=== PATIENT | female | born 2005 | race African-American/Black ===

== ENCOUNTER 2025-02-01 19:47 | Observation (INO) | payer OTHER, SELFPAY ==
--- OUTSIDE RECORDS SUMMARY | 2025-02-01 19:27 | XMS_ITS | CONTINUITY OF CARE DOCUMENT ---
Author Name alfredo fuentes Address Unknown Organization [facility] Address [address] [address] [address] [facility] [address] [place] [address] Phone [phone] Care Team Providers Care E Commerce Web Developer Name Role Phone Alek Rodriguez MD Unavailable Alek Rodriguez MD Unavailable [phone] INS[employer]ANCE PROVID[employer] Payer name Policy type / Coverage type [place] red green party ID [id number]
--- OUTSIDE RECORDS SUMMARY | 2025-02-01 20:06 | XMS_ITS | Encounter Summary ---
Author Organization [facility] Healthcare Address [address] [place] [address] Care Team Providers Care Provider Contracting Consultant Name Role Phone Lulu Heck MD Primary Care Provider [phone] Encounter Details Date Type Department Care Team ([facility] Contact Info) Description 01/01/2025 Results Follow-Up [facility] Obstetrical Gynecology [address] [id number] Hope Hernandez MD [address] [id number] Social History Tobacco Use Types Packs/Day Years Used Date Smoking Tobacco: Never PHQ-2 Answer Date Recorded PHQ-2 Total Score (If total score is 3 or more points, staff should administer the PHQ-9) 0 09/02/2024 Estimated Date of Delivery Comme nts Yes 06/02/2025 Based on last me nstrual period of 08/26/2024 Sex and Gender Information Value Date Recorded Sex Assigned at Not on file Legal Sex Female 3:50 PM [employer] Gender Identity Not on file Sexual Orientation Not on file documented as of this encounter Miscellaneous Notes * Telephone Encounter - Kenia Cruz MD - 02/01/2025 12:53 PM CDT What I see if BV, yeast and evidence of exposure to herpes (HSV) I do not see anything about HIV She needs fluconazole, flagyl * Telephone Encounter - Tito Richard MA - 02/01/2025 12:49 PM CDT Called patient for clarification 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 Has not had an outbreak before. Went over precautions as well as starting medications at 35 just as a precaution. All questions havebeen answered * Telephone Encounter - Tito Richard MA - 02/01/2025 12:09 PM CDT Called to get clarification patient stated the nurse told her she was positive for both BV and HIV.Patient is going to the clinic to get a copy of her results * Telephone Encounter - Tito Richard MA - 02/01/2025 11:29 AM CDT Patient states when her and her partner had intercourse the week of the . Patient states her partner stated his penis was hurting. 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 She is concerned that it could shyanne false positive and she would like to be retested before starting medication. Please advise documented in this encounter Plan of Treatment Not on file documented as of this encounter Visit Diagnoses Not on filedocumented in this encounter Care Teams Provider Contracting Consultant Relationship Specialty Start Date End Date Lulu Heck MD [address] [address] PCP - General Internal Medicine 09/02/24 documented as of this encounter
--- OUTSIDE RECORDS SUMMARY | 2025-02-01 20:06 | XMS_ITS | Clinical Summary ---
Author Organization [facility] [address] [place] [address] Address [address] [place] [address] Care Team Providers Care Assistant Terminal Manager Name Role Phone Lulu Heck MD Primary Care Provider [phone] Allergies No known active allergies Medications budesonide-for moteroL (SYMBICORT) 80-4.5 mcg/actuation inhaler Inhale 2 puffs 2 (two) times a day Rinse mouth with water after use. Do not swallow. 1 each 5 09/02/20 24 Active vit 04-sxiy-vyzir- dha 27mg iron- 800 mcg-250 mg capsule Take 1 tablet by mouth daily 90 capsule 3 11/20/19 25 Active albuterol HFA (PROVENTIL HFA,VENTOLIN HFA,PROAIR HFA) 90 mcg/actuation inhaler INHALE 2 PUFFS BY MOUTH EVERY 8 HOURS NEEDED FOR WHEEZING 6.7 each 3 01/19/20 25 Active albuterol HFA (PROVENTIL HFA,VENTOLIN HFA,PROAIR HFA) 90 mcg/actuation inhaler Inhale 2 puffs every 8 (eight) hours as needed for wheezing 1 each 3 09/02/20 24 025 Discontinued azithromycin (ZITHROMAX) 500 mg tablet TAKE 2 TABLETS BY MOUTH FOR 1 DOSE 11/25/19 25 025 Discontinued(Th erapy completed) M-Catalino Plus 27 mg iron- 1 mg tablet Take 1 tablet by mouth daily 11/23/19 025 Discontinued(Th erapy completed) Active Problems Problem Noted Date Diagnosed Date Chlamydia infection 11/25/2024 GBS bacteriuria 11/25/2024 Encounter for supervision of normal , a ntepartum 11/20/2024 Mild intermittent asthma without complication Assessment & Plan (09/02/2024 11:22 AM COASTAL AND ESTUARY SPECIALIST): Patient with history of asthma since childhood. She takes albuterol inhaler as needed. She went to the ER recently for exacerbation and she was treated with steroids. Patient said that she uses albuterol inhaler on a daily basis. Patient usually does not have frequent issues with asthma. Spirometry today showed FEV1/FVC at 74%. We will start her on Symbicort 80 mcg 2 puffs b.i.d. and advised to rinse the mouth after each use and instructions on how to use the inhaler was given. Patient to call us for persistent symptoms. Routine general medical exam ination at a health care facility 09/02/2024 Assessment & Plan (09/02/2024 11:21 AM COASTAL AND ESTUARY SPECIALIST): Patient uses seatbelt. Patient was encouraged to exercise on regular basis. Patient had flu vaccine. Patient was encouraged to quit smoking marijuana Estimated Date of Delivery Comme nts Yes 06/02/2025 Based on last me nstrual period of 08/26/2024 Encounters Date Type Department Care Team Description 01/18/2025 3:00 PM CDT Office Visit [facility] Obstetrical Gynecology [address] [place] [address] [address] [place] [phone] Kenia Cruz MD Excessive growth affecting management of in second trimester, single or unspecified fetus (Primary Dx); Swelling of lower extremity 01/18/2025 2:15 PM CDT Ancillary Procedure [facility] Obstetrical Gynecology [address] [place] [address] [address] [place] [phone] Encounter for follow-up ultrasound of anatomy 01/18/2025 Orders Only [facility] Obstetrical Gynecology [address] [place] [address] [address] [place] [phone] Will Grijalva MD Excessive growth affecting management of in third trimester, fetus 1 (Primary Dx) 01/18/2025 Orders Only [facility] Obstetrical Gynecology [address] [place] [phone] Will Grijalva MD 01/18/2025 Telephone [facility] Obstetrical Gynecology [address] [place] [phone] Will Grijalva MD 01/04/2025 Orders Only [facility] Obstetrical Gynecology [address] [place] [phone] Kenia Cruz MD Encounter for follow-up ultrasound of anatomy (Primary Dx) 01/01/2025 Results Follow-Up [facility] Obstetrical Gynecology [address] [place] [phone] Hope Hernandez MD 12/31/2024 4:11 PM CDT - 12/31/2024 11:59 PM CDT Hospital Encounter [facility] Lab [facility] [place] [address] Routine screening for STI (sexually transmitted infection) Discharge Disposition: Discharge to home or self care 12/31/2024 2:30 PM CDT Office Visit [facility] Obstetrical Gynecology [address] [place] [phone] Hope Hernandez MD Encounter for supervision of normal first in second trimester (Primary Dx); Routine screening for STI (sexually transmitted infection) 11/25/2024 Results Follow-Up [facility] Obstetrical Gynecology [address] [place] [phone] Vincent Rios MD 11/20/2024 12:20 PM COASTAL AND ESTUARY SPECIALIST - 11/20/2024 11:59 PM COASTAL AND ESTUARY SPECIALIST Hospital Encounter [facility] Office Building [address] [place] [phone] Encounter for supervision of normal in first trimester, unspecified Discharge Disposition: Discharge to home or self care 11/20/2024 11:30 AM COASTAL AND ESTUARY SPECIALIST Office Visit [facility] Obstetrical Gynecology [address] [place] [phone] Vincent Rios MD Encounter for supervision of normal in first trimester, unspecified (Primary Dx) 11/20/2024 10:15 AM COASTAL AND ESTUARY SPECIALIST Lab [facility] [address] [place] [phone] Encounter for supervision of normal in first trimester, unspecified 11/20/2024 9:30 AM COASTAL AND ESTUARY SPECIALIST Clinical Support [facility] Obstetrical Gynecology [address] [place] [phone] 11/20/2024 9:00 AM COASTAL AND ESTUARY SPECIALIST Clinical Support [facility] Obstetrical Gynecology [address] [place] [address] [phone] Establish gestational age, ultrasound (Primary Dx) from Last 3 Months Immunizations Immunization Administration Dates Next Due DTaP 06/02/2008, 5,2004,07/26,2004 HPV, Quadrivalent 11/11/2014,06/08/2014,05/27/20 13 Hep A, Ped Unspecified 06/12/2006 Hep A, Pediatric 07/04/2007 Hep B, Adolescent or Pediatric 4,2004,2004,02/16 HiB 07/03/2005, 4,2004,04/27 IPV 06/02/2008, 4,2004,04/27 Influenza, Quadrivalent, Spl it, Preservative Free, Intramuscular 08/25/2020,07/04/2017,07/31/2016,08/17,10/05/2014,07/27/2013 Influenza, Split 06/29/2009 Influenza, Trivalent, IM (MDV) 07/24/2011 Influenza, Trivalent, Preser vative Free, Intramuscular 07/09/2024 MMR 06/02/2008,03/19/2005 Meningococcal B, OMV (Bexsero) 05/24/2021,2019 Meningococcal MCV4P (Menactra) 08/25/2020,2014 Pneumococcal Conjugate 7-Valent 07/03/20 05,2004,2004,04/27 Tdap 04/12/2015 Varicella 06/02/2008,03/19/2005 Medical History Medical History Date Comments Asthma Family History Medical History Relation Name Comments Breast cancer Neg Hx Colon cancer Neg Hx Ovarian cancer Neg Hx Uterine cancer Neg Hx Social History Tobacco Use Types Packs/Day Years Used Date Smoking Tobacco: Never Tobacco Cessation:Counseling Given: Not Answered PHQ-2 Answer Date Recorded PHQ-2 Total Score (If total score is 3 or more points, staff should administer the PHQ-9) 0 09/02/2024 Estimated Date of Delivery Comme nts Yes 06/02/2025 Based on last me nstrual period of 08/26/2024 Sex and Gender Information Value Date Recorded Sex Assigned at Not on file Legal Sex Female 3:50 PM COASTAL AND ESTUARY SPECIALIST Gender Identity Not on file Sexual Orientation Not on file Obstetrics History Para Term AB IAB SAB Ectopic Multiple Livin g Live Births 1 Date Outcome GA Total Labor Labor/2nd/3rd Weight Sex Type Anes PTL Karena A1 A5 Name Clin Current Summary Episode Dates Number of Fetuses Estimated Date of Delivery 11/20/2024 - Present (02/01/2025) 1 06/02/2025 (set by Patricia Pena RN on 11/20/2024 based on Last Menstrual Period on 08/26/2024) Dating Summary Based On BRANDI GA Diff Last Menstrual Period on 08/26/2024 06/02/2025 Working Ultrasound on 11/20/2024 05/27/2025 +6d GA:13w1d Overview and Plan :Castañeda Support person:Madalyn Bailey Delivery Plans Planned delivery method:Vaginal Planned delivery location:[facility] Overview Surveillance of EDC by LMP = 13 week US AB+/I/-/-, HIV and RPR NR Genetics: Anatomy: 20 weeks GCT: 26-28 weeks 3rd trim CBC/HIV/RPR Tdap: 27+ weeks GBS: URIA!! Social Barriers: none Mode of feeding: Method of contraception: Delivery Planning: TBD Asthma Chlamydia positive: treatment sent 11/25, will need KELLEY Vitals Pregravid Weight Height TWG (As of 02/01/2025) Pregrav id BMI 93.9 kg (207 lb) 180.3 cm (5' 10.98 ) 8.618 kg (19 lb) 28.88 Notes Progress Notes - Office Visi t - 01/18/2025 - GA:20w5d 01/18/2025 - 20wd - Matteo Cruz MD Return OB Visit 19 y.o. at 20w5d who presents for return OB visit. No VB or LOF Not yet feeling movement reliably Continues to have LE swelling, denies chest pain or pain in her legs Objective BP 124/80 Ht 180.3 cm (5' 10.98 ) Wt 226 lb (102.5 kg) LMP 08/26/2024 BMI 31.53 kg/m Body mass index is 31.53 kg/m . TW lb (8.618 kg) Assessment/Plan: - reviewed use of compression socks and limiting salt intake if possible - reviewed s/s of VTE, calves are within 1.5 cm of each other today - reviewed reassuring anatomy US, but LGA so will get growth US at 28 weeks Surveillance of EDC by LMP = 13 week US Labs: AB+/I/-/-, HIV and RPR NR Genetics: counseled and declines Anatomy: Complete, LGA (93%), normal cervical length Placenta: anterior GCT: 26-28 weeks 3rd trim CBC/HIV/RPR Tdap: 27+ weeks GBS: uria, PCN in labor, NKDA. Social Barriers: none Mode of feeding: Method of contraception: mirena IUD Delivery Planning: TBD MP Asthma - PRN Albuterol and symbicort BID, advised to call if any worsening Chlamydia (11/20), KELLEY negative LGA: recommend Heidi at 28 weeks LE swelling: symmetric and otherwise asymptomatic, reviewed supportive care Kenia Cruz MD Progress Notes - Orders Only - 01/04/2025 - GA:18w5d 01/04/2025 - 18wd - Silvia Liu MA Us placed Progress Notes - Office Visi t - 12/31/2024 - GA:18w1d 12/31/2024 - 18w - Hope Hernandez MD Return OB Visit 19 y.o. at 18w1d who presents for return OB visit. Patient overall doing well. She does report LE swelling after being at work all day. [place] Completed treatment for chlamydia. Objective BP 108/60 Ht 180.3 cm (5' 11 ) Wt 223 lb (101.2 kg) LMP 08/26/2024 BMI 31.10 kg/m Body mass index is 31.1 kg/m . TW lb (7.258 kg) +155 +1 LE edema Assessment/Plan: Discussed compression stockings for LE edema and putting feet up at night as much as possible. Anatomy scan next visit. Surveillance of EDC by LMP = 13 week US Labs: AB+/I/-/-, HIV and RPR NR Genetics: counseled - undecided Anatomy: 20 weeks GCT: 26-28 weeks 3rd trim CBC/HIV/RPR Tdap: 27+ weeks GBS: uria, PCN in labor, NKDA. Social Barriers: none Mode of feeding: Method of contraception: Delivery Planning: TBD Asthma - on albuterol -PRN and symbicort BID, advised to call if any worsening Chlamydia (11/20), KELLEY performed today (12/31) Hope Hernandez MD Progress Notes - Clinical Sanchez pport - 11/20/2024 - GA:12w2d 11/20/2024 - 12w2d - Patricia Miner RN Patient is doing well today. Pt would like to discuss asthma. Dating US completed here in office. BRANDI reviewed with the pt. PNL ordered today. NIPT discussed with the pt. She will let us know if she wants to complete the testing. STI urine to be collected today. Tdap and flu shot recommendations reviewed with the pt. Asthma, pt has 2 inhalers that she uses. She does not follow with pulmonology. OB call schedule reviewed with the pt. NOB packet reviewed with the pt and her questions were answered. TAL AND ESTUARY SPECIALIST Progress Notes - Office Visi t - 11/20/2024 - GA:12w2d 11/20/2024 - 12w2d - Vincent Rios MD New OB Visit CC: Chief Complaint Patient presents with Initial Visit HPI: Dominga Lantigua is a 19 y.o. female at 12w2d here for new OB visit. Patient reports vasquez cute concerns Denies vb, lof, ctxs Denies MONTEZ/altered vision/CP/SOB/abdominal pain/significant edema/LE discomfort. OB History 1 Para Term AB Living SAB IAB Ectopic Multiple Live Births Past Medical History: Diagnosis Date Asthma History reviewed. No pertinent surgical history. Family History Problem Relation Age of Onset Breast cancer Neg Hx Colon cancer Neg Hx Ovarian cancer Neg Hx Uterine cancer Neg Hx reports that she has never smoked. She does not have any smokeless tobacco history on file. No alcohol history on file. reports that she does not currently use drugs after having used the following drugs: Marijuana. No Known Allergies Medications: Current Outpatient Medications: albuterol HFA (PROVENTIL HFA,VENTOLIN HFA,PROAIR HFA) 90 mcg/actuation inhaler, Inhale 2 puffs every 8 (eight) hours as needed for wheezing, Disp: 1 each, Rfl: 3 budesonide-formoteroL (SYMBICORT) 80-4.5 mcg/actuation inhaler, Inhale 2 puffs 2 (two) times a day Rinse mouth with water after use. Do not swallow., Disp: 1 each, Rfl: 5 vit 94-qdow-pcmgx-dha 27mg iron- 800 mcg-250 mg capsule, Take by mouth, Disp: , Rfl: Immunization History Administered Date(s) Administered DTaP 2004, 2004, 2004, 07/03/2005, 06/02/2008 HPV, Quadrivalent 05/27/2013, 06/08/2014, 11/11/2014 Hep A, Ped Unspecified 06/12/2006 Hep A, Pediatric 07/04/2007 Hep B, Adolescent or Pediatric 2004, 2004, 2004, 2004 HiB 2004, 2004, 2004, 07/03/2005 IPV 2004, 2004, 2004, 06/02/2008 Influenza, Quadrivalent, Split, Preservative Free, Intramuscular 07/27/2013, 10/05/2014, 08/17/2015, 07/31/2016, 07/04/2017, 08/25/2020 Influenza, Split 06/29/2009 Influenza, Trivalent, IM (MDV) 07/24/2011 Influenza, Trivalent, Preservative Free, Intramuscular 07/09/2024 MMR 03/19/2005, 06/02/2008 Meningococcal B, OMV (Bexsero) 08/25/2020, 05/24/2021 Meningococcal MCV4P (Menactra) 04/12/2015, 08/25/2020 Pneumococcal Conjugate 7-Valent 2004, 2004, 2004, 07/03/2005 Tdap 04/12/2015 Varicella 03/19/2005, 06/02/2008 Review of Systems: 10 systems reviewed and negative, except for those mentioned in HPI. Physical Exam BP 116/78 Wt 207 lb (93.9 kg) LMP 08/26/2024 BMI 28.87 kg/m Body mass index is 28.87 kg/m . TW lb (0 kg) Heart Rate: +US General: over weight female, pleasant, in no acute distress HEENT: normocephalic, atraumatic, nose normal, conjunctivae normal Lungs: Normal effort, no respiratory distress Abdomen: soft, nontender, nondistended Skin: warm, well-perfused Neuro: No focal deficits Psych: alert; normal mood and affect ASSESSMENT / PLAN: Dominga Lantigua is a 19 y.o. female at 12w2d here for new OB visit. Diagnosis Plan 1. Encounter for supervision of normal in first trimester, unspecified CBC without differential Drugs of Abuse Screen, Urine with Reflex Confirmation Hemoglobin A1c Hemoglobin analysis by electrophoresis Hepatitis B Surface Antigen Blood Hepatitis C antibody Blood HIV 1/2 Antibody plus p24 Antigen Blood RPR Blood Rubella IgG antibody Blood Type and screen Urine culture Urine, clean voided N. gonorrhoeae/C. trachomatis Amplification Urine Trichomonas vaginalis PCR Urine Surveillance of EDC by LMP = 13 week US Labs: ordered Genetics: counseled - undecided Anatomy: 20 weeks GCT: 26-28 weeks 3rd trim CBC/HIV/RPR Tdap: 27+ weeks GBS: 36 weeks, or sooner if early delivery indicated Social Barriers: none Mode of feeding: Method of contraception: Delivery Planning: TBD Asthma - on albuterol -PRN and symbicort BID (has not started this - recommend pciking up IAN); advsied to call if any worsening Counseled to call or return for vaginal bleeding, regular contractions, leakage of fluid or decreased movement. Oriented to clinic and care. packet reviewed and all patient questions answered. Follow-up: 4wks LUCI Rios MD TAL AND ESTUARY SPECIALIST Last Filed Vital Signs Vital Sign Reading Time Taken Comments Blood Pressure 124/80 01/18/2025 3:08 PM CDT Pulse 60 09/02/2024 9:24 AM COASTAL AND ESTUARY SPECIALIST Temperature 37 C (98.6 F) 09/02/2024 9:24 AM COASTAL AND ESTUARY SPECIALIST Respiratory Rate 16 09/02/2024 9:24 AM COASTAL AND ESTUARY SPECIALIST Oxygen Saturation 98% 09/02/2024 9:24 AM COASTAL AND ESTUARY SPECIALIST Inhaled Oxygen Concentration - - Weight 102.5 kg (226 lb) 01/18/2025 3:08 PM CDT Height 180.3 cm (5' 10.98 ) 01/18/2025 3:08 PM C DT Body Mass Index 31.53 01/18/2025 3:08 PM CDT Plan of Treatment Health Maintenance Due Date Last Done Comments Pneumococcal vaccine <65 (1 of 1 - PPSV23) 02/16/2010 07/03/2005, 2004, 2004, Additional history exists DTaP/Tdap/Td Vaccine (7 - Td or Tdap) 04/12/2025 04/12/2015, 06/02/2008, 07/03/2005, Additional history exists Depression Screening 09/02/2025 09/02/2024 Regular Well Visit/Exam 18-64 09/02/2025 09/02/2024 Chlamydia and Gonorrhea (GC/ CT) Screening 12/31/2025 12/31/2024, 11/20/2024 Hepatitis B Screening Completed 2004 , 2004, 2004, Additional history exists Varicella Vaccines Completed 06/02/2008, 03/19/2005 HPV Vaccines Completed 11/11/2014, 11/2013, 05/27/2013 Meningococcal Vaccine Completed 08/25/2020, 015 Meningococcal B Vaccine Completed 05/24/2021, 08/25 Influenza Vaccine Completed 07/09/2024, , 07/04/2017, Additional history exists Hepatitis C Screening Completed 11/20/2024 Procedures Procedure Name Priority Date/Time Associated Diagnosis Comments US OB 14 WEEKS OR OVER W ENDOVAGINAL Schedule Routine, Read Routine (OP Routine) 01/18/2025 2:16 PM CDT Encounter for follow-up ultrasound of anatomy N. GONORRHOEAE/C. TRACHOMATIS AMPLIFICATION Routine 12/31/2024 3:06 PM CDT Routine screening for STI (sexually transmitted infection) DRUGS OF ABUSE SCREEN, URINE WITH REFLEX CONFIRMATION Routine 11/20/2024 10:28 AM COASTAL AND ESTUARY SPECIALIST Encounter for supervision of normal in first trimester, unspecified URINE CULTURE Routine 11/20/2024 10:28 AM COASTAL AND ESTUARY SPECIALIST Encounter for supervision of normal in first trimester, unspecified N. GONORRHOEAE/C. TRACHOMATIS AMPLIFICATION Routine 11/20/2024 10:28 AM COASTAL AND ESTUARY SPECIALIST Encounter for supervision of normal in first trimester, unspecified TRICHOMONAS VAGINALIS PCR Routine 11/20/2024 10:28 AM COASTAL AND ESTUARY SPECIALIST Encounter for supervision of normal in first trimester, unspecified ANTIBODY SCREEN Routine 11/20/2024 10:13 AM COASTAL AND ESTUARY SPECIALIST Encounter for supervision of normal in first trimester, unspecified ABO/RH Routine 11/20/2024 10:13 AM COASTAL AND ESTUARY SPECIALIST Encounter for supervision of normal in first trimester, unspecified CBC WITHOUT DIFFERENTIAL Routine 11/20/2024 10:13 AM COASTAL AND ESTUARY SPECIALIST Encounter for supervision of normal in first trimester, unspecified HEMOGLOBIN A1C Routine 11/20/2024 10:13 AM COASTAL AND ESTUARY SPECIALIST Encounter for supervision of normal in first trimester, unspecified HEMOGLOBIN ANALYSIS BY ELECTROPHORESIS Routine 11/20/2024 10:13 AM COASTAL AND ESTUARY SPECIALIST Encounter for supervision of normal in first trimester, unspecified TYPE AND SCREEN Routine 11/20/2024 10:13 AM COASTAL AND ESTUARY SPECIALIST Encounter for supervision of normal in first trimester, unspecified HEPATITIS B SURFACE ANTIGEN Routine 11/20/2024 10:13 AM COASTAL AND ESTUARY SPECIALIST Encounter for supervision of normal in first trimester, unspecified HEPATITIS C ANTIBODY Routine 11/20/2024 10:13 AM COASTAL AND ESTUARY SPECIALIST Encounter for supervision of normal in first trimester, unspecified HIV 1/2 ANTIBODY PLUS P24 ANTIGEN Routine 11/20/2024 10:13 AM COASTAL AND ESTUARY SPECIALIST Encounter for supervision of normal in first trimester, unspecified RPR Routine 11/20/2024 10:13 AM COASTAL AND ESTUARY SPECIALIST Encounter for supervision of normal in first trimester, unspecified RUBELLA IGG Routine 11/20/2024 10:13 AM COASTAL AND ESTUARY SPECIALIST Encounter for supervision of normal in first trimester, unspecified US OB UNDER 14 WEEKS Schedule Routine, Read Routine (OP Routine) 11/20/2024 9:26 AM COASTAL AND ESTUARY SPECIALIST Establish gestational age, ultrasound from Last 3 Months Results * US OB 14 Weeks Or Over W Endovaginal (01/18/2025 2:16 PM CDT) Fetus# Fetus1 VIEWPOINT Estimated Weight 454 g&grams VIEWPOINT Placenta Details anterior VIEWPOINT Presentation Vertex VIEWPOINT Anatomical Region Laterality Modality Abdomen N/A Ultrasound 01/18/2025 2:25 PM CDT Impressions 01/18/2025 3:20 PM CDT Single Live Fetus in Vertex presentation. Anatomic Survey Complete All anatomy normal within the limits of ultrasound. LGA growth pattern with EFW 454 g, 93% Fluid within normal limits with DVP of 4.7 cm Placenta anterior Normal Cervical Length 41.4 mm Narrative Procedure Note Kenia Cruz MD - 01/18/2025 IMPRESSION: Single Live Fetus in Vertex presentation. Anatomic Survey Complete All anatomy normal within the limits of ultrasound. LGA growth pattern with EFW 454 g, 93% Fluid within normal limits with DVP of 4.7 cm Placenta anterior Normal Cervical Length 41.4 mm us Kenia Cruz MD IMG OB US PROCEDURES Final Result * N. gonorrhoeae/C. trachomatis Amplification Vaginal (12/31/2024 3:06 PM CDT) C. trachomatis Not Detected [facility] Comment:Testing performed by : [facility], [address] [place] [place]., [address] N. gonorrhoeae Not Detected [facility] Comment: Interpretive Data This assay detects Chlamydia trachomatis and Neisseria gonorrhoeae by nucleic acid amplification testing (NAAT). This assay has been cleared by the [place] Food and Drug administration. The performance characteristics of this test have been verified by the [facility] Molecular Infectious Disease laboratory. The performance characteristics of this test have not been evaluated in individuals less than 14 years of age. Current Interpretive Data was last revised on 2023. Testing performed by: [facility], [address] [place]., [address] Vaginal (None) 12/31/2024 3: 06 PM CDT 12/31/2024 7:43 PM CDT Hope Hernandez MD LAB MICROBIOLOGY - GENERA L ORDERABLES Final Result Performing Organization Address [facility] Co de Phone Number [address] [address] [facility] * (ABNORMAL) N. gonorrhoeae/C. trachomatis Amplification Urine (11/20/2024 10:28 AM COASTAL AND ESTUARY SPECIALIST) C. trachomatis Detected(A) [facility] Comment:Testing performed by : [facility], [address] [place] [address]., [id number] N. gonorrhoeae Not Detected [facility] Comment: Interpretive Data This assay detects Chlamydia trachomatis and Neisseria gonorrhoeae by nucleic acid amplification testing (NAAT). This assay has been cleared by the [place] Food and Drug administration. The performance characteristics of this test have been verified by the [facility] Molecular Infectious Disease laboratory. The performance characteristics of this test have not been evaluated in individuals less than 14 years of age. Current Interpretive Data was last revised on 2023. Testing performed by: [facility], [address] [place] [address]., [id number] Urine (None) 11/20/2024 10:2 8 AM COASTAL AND ESTUARY SPECIALIST 11/21/2024 12:11 AM COASTAL AND ESTUARY SPECIALIST Vincent Rios MD LAB MICROBIOLOGY - GENER AL ORDERABLES Final Result Performing Organization Address [facility] Co de Phone Number [address] [address] [facility] * Drugs of Abuse Screen, Urine with Reflex Confirmation (11/20/2024 10:28 AM COASTAL AND ESTUARY SPECIALIST) Amphetamine, ur Not Detected [facility] 500ng/mL Comment: Interpretive Data - Amphetamines: Samples containing greater than 500 ng/mL d-methamphetamine or other cross-reacting amphetamine compounds are reported as positive. Amphetamine immunoassays are subject to significant false positive rates due to cross-reactivity of non-amphetamine drugs. Confirmatory testing required for definitive results. Current Interpretive Data was last reviewed 2023. Testing performed by: [facility], [address] [place] [address]., [id number] Barbiturates, ur Not Detected CutOff 200ng/mL [facility] Comment: Interpretive Data - Barbiturates: Samples containing greater than 200 ng/mL secobarbital or other cross-reacting barbiturate compounds are reported as positive. False positive and false negative results are possible. Confirmatory testing required for definitive results. Current Interpretive Data was last reviewed 2023. Testing performed by: [address] [address] Benzodiazepines, ur Not Detected CutOff 100ng/mL [facility] Comment: Interpretive Data - Benzodiazepines: Samples containing greater than 100 ng/mL nordiazepam or other cross-reacting compounds are reported as positive. False positive and false negative results are possible. Confirmatory testing required for definitive results. Current Interpretive Data was last reviewed 2023. Testing performed by: [address] [address] Cannabinoids, ur Not Detected CutOff 50 ng/mL [facility] Comment: Interpretive Data - Cannabinoids: Samples containing greater than 50 ng/mL delta-9 THC -COOH or other cross- reacting compounds are reported as positive. False positive and false negative results are possible. Confirmatory testing required for definitive results. Current Interpretive Data was last reviewed 2023. Testing performed by: [address] [address] Cocaine, ur Not Detected CutOff 150ng/mL [facility] Comment: Interpretive Data - Cocaine: Samples containing greater than 150 ng/mL benzoylecgonine or other cross- reacting compounds are reported as positive. False positive and false negative results are possible. Confirmatory testing required for definitive results. Current Interpretive Data was last reviewed 2023. Testing performed by: [address] [address] Fentanyl, Ur Not Detected CutOff 5 ng/mL [facility] Comment: Interpretive Data - Fentanyl: Samples containing greater than 1 ng/mL fentanyl or other cross-reacting fentanyl compounds are reported as positive. False positive and false negative results are possible. Confirmatory testing required for definitive results. Current Interpretive Data was last reviewed 2023. Testing performed by: [address] [address] Methadone, ur Not Detected CutOff 300ng/mL [facility] Comment: Interpretive Data - Methadone: Samples containing greater than 300 ng/mL d,l-methadone or other cross-reacting compounds are reported as positive. False positive and false negative results are possible. Confirmatory testing required for definitive results. Current Interpretive Data was last reviewed 2023. Testing performed by: [address] [address] Opiates, ur Not Detected CutOff 300ng/mL [facility] Comment: Interpretive Data - Opiates: Samples containing greater than 300 ng/mL morphine or other cross-reacting compounds are reported as positive. False positive and false negative results are possible. Confirmatory testing required for definitive results. Current Interpretive Data was last reviewed 2023. Testing performed by: [address] [address] Oxycodone, ur Not Detected CutOff 100ng/mL [facility] Comment: Interpretive Data - Oxycodone: Samples containing greater than 100 ng/mL oxycodone or other cross-reacting compounds are reported as positive. False positive and false negative results are possible. Confirmatory testing required for definitive results. Current Interpretive Data was last reviewed 2023. Testing performed by: [address] [address] Phencyclidine, ur Not Detected CutOff 25 ng/mL [facility] Comment: Interpretive Data - Phencyclidine: Samples containing greater than 25 ng/mL phencyclidine or other cross-reacting compounds are reported as positive. False positive and false negative results are possible. Confirmatory testing required for definitive results. Current Interpretive Data was last reviewed 2023. Testing performed by: [address] [address] Urine Creatinine 443 mg/dL [facility] Comment: Interpretive Data Urine Creatinine: < 10 mg/dL is extremely dilute = or > 10 but < 20 mg/dL is dilute = or > 20 mg/dL is normal Current Interpretive Data was last revised on 2017. Testing performed by: [facility], [address] [place] [address], [place]., [address] Urine 11/20/2024 10:2 8 AM COASTAL AND ESTUARY SPECIALIST 11/20/2024 7:18 PM COASTAL AND ESTUARY SPECIALIST Narrative [facility] 11/20/2024 7:42 PM COASTAL AND ESTUARY SPECIALIST Drug of Abuse screening is performed by immunoassay for medical purposes only. This is not to be used for Pain Management purposes. If Detected, confirmation testing will be performed for Amphetamines, Cocaine, Fentanyl, Methadone, Opiates, Oxycodone or Phencyclidine. Vincent Rios MD LAB URINE ORDERABLES Fin al Result Performing Organization Address [facility] Co de Phone Number [address] [place] [address] * Trichomonas vaginalis PCR Urine (11/20/2024 10:28 AM COASTAL AND ESTUARY SPECIALIST) Pathologist [facility] Trichomonas DNA Not Detected [facility] Comment: Interpretive Data This assay detects Trichomonas vaginalis by nucleic acid amplification testing (NAAT). This assay has been cleared by the [place] Food and Drug administration. The performance characteristics of this test have been verified by the [facility] Molecular Infectious Disease laboratory. The performance of this test has not been evaluated in individuals less than 18 years of age. Current Interpretive Data was last revised on 2023. Testing performed by: [facility], [address] [facility] [place] [address] Urine 11/20/2024 10:2 8 AM COASTAL AND ESTUARY SPECIALIST 11/21/2024 12:11 AM COASTAL AND ESTUARY SPECIALIST Vincent Rios MD LAB MICROBIOLOGY - GENER AL ORDERABLES Final Result Performing Organization Address [facility] Co de Phone Number [address] [place] [address] [facility] * (ABNORMAL) Urine culture Urine, clean voided (11/20/2024 10:28 AM COASTAL AND ESTUARY SPECIALIST) Report Final Report: Less than 100,000 colonies/mL (clinically insignificant growth based on current clinical standards) Includes the following: Less than 100,000 colonies/mL Streptococcus agalactiae (Group B Streptococci) * * * * * * * * * * * * * * * * * * * * Resistance to penicillin in Group B Streptococcus has not been reported. Group B Streptococci are universally susceptible to beta-lactam antibiotics and vancomycin. Routine susceptibility testing is not performed. In penicillin allergic patients, please contact the laboratory at [phone] to request susceptibility testing * * * * * * * * * * * * * * * * * * * * This laboratory routinely screens urine cultures for any amount of Group B Streptococcus in reproductive age women. Recovery of this isolate may be significant in women, however, the recovery of this organism in small quantities in non- women represents contamination with periurethral trice. (.) Comment:Testing performed by : [facility], [address] [place] [place] [address] Organism (CLINICALLY INSIGNIFICANT GROWTH [facility] Organism STREPTOCOCCUS AGALACTIAE (GROUP B STREPTOCOCCI) [facility] Urine, clean voided 11/20/2024 10:28 AM COASTAL AND ESTUARY SPECIALIST 11/20/2024 11:52 PM COASTAL AND ESTUARY SPECIALIST Narrative [facility] - 11/22/2024 6:47 AM COASTAL AND ESTUARY SPECIALIST Testing performed by [facility] Microbiology Laboratory ([phone]) Vincent Rios MD LAB MICROBIOLOGY - [facility] ORDERABLES Final Result [facility] [address] [facility] Department of Laboratories [place], [place] [id number] * HIV 1/2 Antibody plus p24 Antigen Blood (11/20/2024 10:13 AM COASTAL AND ESTUARY SPECIALIST) Pathologist [facility] HIV 1/2 ab + p24 ag Nonreactive Nonreactive Comment:Nonreactive for HIV- 1 antigen and HIV-1/HIV-2 antibodies. No laboratory evidence of HIV infection. If acute HIV infection is suspected, consider testing for HIV-1 RNA. Current interpretive data was last revised on 22. Blood 11/20/2024 10:1 3 AM COASTAL AND ESTUARY SPECIALIST 11/20/2024 12:38 PM COASTAL AND ESTUARY SPECIALIST us Vincent Rios MD LAB MICROBIOLOGY - GENER AL ORDERABLES Final Result [facility] [address] [facility] Department [place] [address] * Hemoglobin analysis by electrophoresis (11/20/2024 10:13 AM COASTAL AND ESTUARY SPECIALIST) RBC 4.36 3.90 - 5.20 M/cumm Comment:Testing performed by : [facility], [address] [facility], [address] Hgb 13.4 11.9 - 15.5 g/dL [facility] JAMES Comment:Testing performed by : [facility], [address] [facility], [address] MCV 91.3 81.3 - 96.4 fL [facility] Comment:Testing performed by : [facility], [address] [facility], [address] Rdw 13.5 11.1 - 14.9 % [facility] Comment:Testing performed by : [facility], [address] [facility], [address] Hgb electrophores is, interp Normal Hemoglobin Pattern - For Age [facility] JAMES Comment:Testing performed by : [facility], [address] [facility], [address] Hgb A 96.9 96.0 - 98.5 % [facility] Comment:Testing performed by : [facility], [address] [facility], [address] Hgb A2 3.1 1.5 - 3.2 % [facility] JAMES Comment:Testing performed by : [facility], [address] [facility], [address] Hgb F <0.4 0.0 - 0.9 % [facility] JAMES Comment:Testing performed by : [facility], [address] [facility], [place] [address] Blood 11/20/2024 10:1 3 AM COASTAL AND ESTUARY SPECIALIST 11/20/2024 1:20 PM COASTAL AND ESTUARY SPECIALIST Vincent Rios MD LAB BLOOD ORDERABLES Fin al Result Performing Organization Address City/[facility]/ZIP Co de Phone Number [facility] [facility] [place] [address] * Hepatitis C antibody Blood (11/20/2024 10:13 AM COASTAL AND ESTUARY SPECIALIST) Hep C Ab Nonreactive Nonreactive Comment: Antibodies to HCV not detected. Does NOT exclude the possibility of recent exposure to HCV. Current interpretive data was last revised on 22 Interpretive Data Nonreactive: Antibodies to HCV not detected. Does NOT exclude the possibility of recent exposure to HCV. Equivocal: Equivocal for HCV antibodies. Supplemental molecular testing will be automatically performed to determine infection status in accordance with current CDC screening recommendations. Reactive: Positive for HCV antibodies. This may represent current or past HCV infection. Supplemental molecular testing will be automatically performed to determine current infection status in accordance with current CDC screening recommendations. Interpretive data was last revised on 2019. Blood 11/20/2024 10:1 3 AM COASTAL AND ESTUARY SPECIALIST 11/20/2024 12:38 PM COASTAL AND ESTUARY SPECIALIST Vincent Rios MD LAB MICROBIOLOGY - GENER AL ORDERABLES Final Result Performing Organization Address [facility] Co de Phone Number [place] [id number] [facility] [place] [address] * ABO/Rh (11/20/2024 10:13 AM COASTAL AND ESTUARY SPECIALIST) ABO/Rh AB Positive Comment:Testing performed by : [facility], [address] [place] [address]., [address] Blood 11/20/2024 10:1 3 AM COASTAL AND ESTUARY SPECIALIST 11/20/2024 10:42 AM COASTAL AND ESTUARY SPECIALIST Narrative [facility] - 11/20/2024 11:35 AM COASTAL AND ESTUARY SPECIALIST Has the patient had Daratumumab or Isatuximab in the past 6 months?->Unknown Hx of or candidate for Bone Marrow/Stem Cell transplant?->No Vincent Rios MD LAB BLOOD BANK TEST ORDE RABLES Final Result Performing Organization Address [facility] Co de Phone Number [address] [place] [address] * Rubella IgG antibody Blood (11/20/2024 10:13 AM COASTAL AND ESTUARY SPECIALIST) Rubella IgG Reactive Reactive Blood 11/20/2024 10:1 3 AM COASTAL AND ESTUARY SPECIALIST 11/20/2024 12:38 PM COASTAL AND ESTUARY SPECIALIST Vincent Rios MD LAB MICROBIOLOGY - GENER AL ORDERABLES Final Result Performing Organization Address [facility] Phone Number [address] [place] [address] * RPR Blood (11/20/2024 10:13 AM COASTAL AND ESTUARY SPECIALIST) RPR Nonreactive Nonreactive Comment:Testing performed by : [facility], [address] [facility] [place] [address] Blood 11/20/2024 10:1 3 AM COASTAL AND ESTUARY SPECIALIST 11/20/2024 3:31 PM COASTAL AND ESTUARY SPECIALIST Result [facility] Vincent Rios MD LAB MICROBIOLOGY - GENER AL ORDERABLES Final Result Performing Organization Address [facility] Co de Phone Number [address] [place] [address] * Hepatitis B Surface Antigen Blood (11/20/2024 10:13 AM COASTAL AND ESTUARY SPECIALIST) HepBsAg Nonreactive Nonreactive Blood 11/20/2024 10:1 3 AM COASTAL AND ESTUARY SPECIALIST 11/20/2024 12:38 PM COASTAL AND ESTUARY SPECIALIST Vincent Rios MD LAB MICROBIOLOGY - GENER AL ORDERABLES Final Result [facility] [address] [facility] Department [place] [address] * (ABNORMAL) CBC without differential (11/20/2024 10:13 AM COASTAL AND ESTUARY SPECIALIST) WBC 12.8(H) 3.8 - 9.9 K/cumm Comment:Testing performed by : [address] [address] Hgb 13.8 11.9 - 15.5 g/dL [facility] Comment:Testing performed by : [address] [address] Hct 40.0 35.6 - 45.5 % [facility]SA Comment:Testing performed by : [address] [address] Plt 320 150 - 400 K/cumm [facility]ESSA Comment:Testing performed by : [address] [address] MPV 10.3 9.1 - 12.3 fL [facility] Comment:Testing performed by : [address] [address] RBC 4.46 3.90 - 5.20 M/cumm [facility] Comment:Testing performed by : [address] [address] MCV 89.7 81.3 - 96.4 fL [facility] Comment:Testing performed by : [address] [address] MCH 30.9 27.1 - 33.3 pg [facility]SA Comment:Testing performed by : [address] [address] MCHC 34.5 32.3 - 35.7 g/dL [facility] Comment:Testing performed by : [address] [address] RDW CV 13.5 11.1 - 14.9 % [facility] Comment:Testing performed by : [address] [address] RDW SD 44.4 35.7 - 48.1 fL [facility] Comment:Testing performed by : [facility], [address] [place] [address]., [address] NRBC abs 0.00 0.00 - 0.01 K/cumm [facility]SA Comment:Testing performed by : [facility], [address] [place] [address]., [address] Blood 11/20/2024 10:1 3 AM COASTAL AND ESTUARY SPECIALIST 11/20/2024 10:42 AM COASTAL AND ESTUARY SPECIALIST Vincent Rios MD LAB BLOOD ORDERABLES Fin al Result Performing Organization Address [facility] de Phone Number [address] [address] * Antibody screen (11/20/2024 10:13 AM COASTAL AND ESTUARY SPECIALIST) Malena, indirect, Gel Interpretation Negative ABSC Comment:Testing performed by : [address], [address] Blood 11/20/2024 10:1 3 AM COASTAL AND ESTUARY SPECIALIST 11/20/2024 10:42 AM COASTAL AND ESTUARY SPECIALIST Narrative [facility]ESSA - 11/20/2024 11:46 AM COASTAL AND ESTUARY SPECIALIST Has the patient had Daratumumab or Isatuximab in the past 6 months?->Unknown Hx of or candidate for Bone Marrow/Stem Cell transplant?->No Vincent Rios MD LAB BLOOD BANK TEST ORDE RABLES Final Result Performing Organization Address [facility] Co de Phone Number [address] [place] [address] * Hemoglobin A1c (11/20/2024 10:13 AM COASTAL AND ESTUARY SPECIALIST) Hgb A1C 5.1 4.0 - 5.6 % Comment:Testing performed by : [address] [address] Estimated Average Glucose 100 mg/dL [facility] Comment: The ADA recommends reporting an estimated Average Glucose (eAG) with all Hemoglobin A1c results using the equation derived from a study of 507 normal and diabetic adults. Minority populations were underrepresented and children were not included. (Diabetes Care 31:9376-6545, 2008). The eAG is not equivalent to a fasting glucose. Testing performed by: [facility], [address] [place] [address], [place]., [address] Blood 11/20/2024 10:1 3 AM COASTAL AND ESTUARY SPECIALIST 11/20/2024 10:42 AM COASTAL AND ESTUARY SPECIALIST us Vincent Rios MD LAB BLOOD ORDERABLES Fin al Result [facility] [address] [facility] Department [place] [address] * US Ob Under 14 Weeks (11/20/2024 9:26 AM COASTAL AND ESTUARY SPECIALIST) Heart Rate 161 bpm CRL 6.79 cm Anatomical Region Laterality Modality Abdomen N/A Ultrasound Narrative 11/20/2024 1:27 PM COASTAL AND ESTUARY SPECIALIST Previous exam: no Indication: dating number: 1 GA by LMP 11.20.24 12w2d BRANDI 08.27.25 GA by today's exam 13w1d BRANDI 08.21.25 CRL 6.79 cm FHR 161 bpm Canvas Repairer comments: Ovaries WNL. PCI/ACI/4ch/CP/2 arms/2 legs visualized. Physician Interpretation Reason for exam: OB Dating Single, live IUP identified with cardiac activity of 161 bpm. Based on today's crown-rump length, the estimated gestational age is 13w1d which is consistent with LMP for BRANDI of 06/02/25. Bilateral ovaries appear normal. No other abnormalities identified. Recommend: f/u US 18-22wga for anatomic survey. Vincent Rios MD us Vincent Rios MD IMG OB US PROCEDURES Live angela Result - Final from Last 3 Months Insurance [facility] [employer] IDPA Care Teams Assistant Terminal Manager Relationship Specialty Start Date End Date Lulu Heck MD [address] [place] [address] PCP - General Internal Medicine 09/02/24
--- OUTSIDE RECORDS SUMMARY | 2025-02-01 20:06 | XMS_ITS | CONTINUITY OF CARE DOCUMENT ---
Author Name alfredo fuentes Address Unknown Organization [facility] Address [address] [place] [address] Phone [phone] Care Team Providers Care Armament Repairer Name Role Phone Alek Rodriguez MD Unavailable Alek Rodriguez MD Unavailable INSURANCE PROVIDERS Payer name Policy type / Coverage type [employer] party ID [id number] PAY
--- OUTSIDE RECORDS SUMMARY | 2025-02-01 20:06 | XMS_ITS | Encounter Summary ---
Author Organization [facility] Healthcare Address [address] [place] [address] Care Team Providers Care Creative Strategist Name Role Phone Lulu Heck MD Primary Care Provider [phone] Encounter Details Date Type Department Care Team ([facility] Contact Info) Description 09/14/2024 Orders Only [facility] Health Information Management [address] [place] [address] Scanning, Provider Social History Tobacco Use Types Packs/Day Years Used Date Smoking Tobacco: Never PHQ-2 Answer Date Recorded PHQ-2 Total Score (If total score is 3 or more points, staff should administer the PHQ-9) 0 09/02/2024 Comments Unknown Sex and Gender Information Value Date Recorded Sex Assigned at Not on file Legal Sex Female 3:50 PM CRANE MECHANIC Gender Identity Not on file Sexual Orientation Not on file documented as of this encounter Plan of Treatment Not on file documented as of this encounter Procedures Procedure Name Priority Date/Time Associated Diagnosis Comments PULMONARY - RESULT SCAN 09/14/2024 9:31 PM CRANE MECHANIC documented in this encounter Results * PULMONARY - RESULT SCAN (09/14/2024 9:31 PM CRANE MECHANIC) Anatomical Region Laterality Modality Other us Provider Scanning Final Result documented in this encounter Visit Diagnoses Not on filedocumented in this encounter Care Teams Creative Strategist Relationship Specialty Start Date End Date Lulu Heck MD [address] [place] [address] PCP - General Internal Medicine 09/02/24 documented as of this encounter
--- OUTSIDE RECORDS SUMMARY | 2025-02-01 20:06 | XMS_ITS | Referral Summary ---
Author Organization [address] Address [address] [place] [address] Care Team Providers Care Independent Video Producer Name Role Phone Lulu Heck MD Primary Care Provider Encounters Date Type Department Care Team Description 01/18/2025 Orders Only [facility] Obstetrical Gynecology [address] [place] [address] [address] [place] [address] Will Grijalva MD Excessive growth affecting management of in third trimester, fetus 1 (Primary Dx) 01/18/2025 Orders Only [facility] Obstetrical Gynecology [address] [place] [address] [address] [place] [phone] Will Grijalva MD 01/18/2025 Telephone [facility] Obstetrical Gynecology [address] [place] [phone] Will Grijalva MD 01/18/2025 2:15 PM CDT Ancillary Procedure [facility] Obstetrical Gynecology [address] [place] [address] [address] [place] [phone] Encounter for follow-up ultrasound of anatomy 01/18/2025 3:00 PM CDT Office Visit [facility] Obstetrical Gynecology [address] [place] [address] [address] [place] [phone] Kenia Cruz MD Excessive growth affecting management of in second trimester, single or unspecified fetus (Primary Dx); Swelling of lower extremity 01/04/2025 Orders Only [facility] Obstetrical Gynecology [address] [place] [phone] Kenia Cruz MD Encounter for follow-up ultrasound of anatomy (Primary Dx) 01/01/2025 Results Follow-Up [facility] Obstetrical Gynecology [address] [place] [phone] Hope Hernandez MD 12/31/2024 4:11 PM CDT - 12/31/2024 11:59 PM CDT Hospital Encounter [facility] Lab [address] [place] [id number] Routine screening for STI (sexually transmitted infection) Discharge Disposition: Discharge to home or self care 12/31/2024 2:30 PM CDT Office Visit [facility] Obstetrical Gynecology [address] [place] [phone] Hope Hernandez MD Encounter for supervision of normal first in second trimester (Primary Dx); Routine screening for STI (sexually transmitted infection) 11/25/2024 Results Follow-Up [facility] Obstetrical Gynecology [address] [place] [phone] Vincent Rios MD 11/20/2024 12:20 PM QUILL LAYER - 11/20/2024 11:59 PM QUILL LAYER Hospital Encounter [facility] [address] [place] [address] Encounter for supervision of normal in first trimester, unspecified Discharge Disposition: Discharge to home or self care 11/20/2024 10:15 AM QUILL LAYER Lab [facility] [address] [place] [address] Encounter for supervision of normal in first trimester, unspecified 11/20/2024 11:30 AM QUILL LAYER Office Visit [facility] Obstetrical Gynecology [address] [place] [phone] Vincent Rios MD Encounter for supervision of normal in first trimester, unspecified (Primary Dx) 11/20/2024 9:30 AM QUILL LAYER Clinical Support [facility] Obstetrical Gynecology [address] [place] [phone] 11/20/2024 9:00 AM QUILL LAYER Clinical Support [facility] Obstetrical Gynecology [address] [place] [phone] Establish gestational age, ultrasound (Primary Dx) from Last 3 Months Allergies No known active allergies Medications budesonide-for moteroL (SYMBICORT) 80-4.5 mcg/actuation inhaler Inhale 2 puffs 2 (two) times a day Rinse mouth with water after use. Do not swallow. 1 each 5 09/02/20 24 Active vit 31-kqdc-bctzh- dha 27mg iron- 800 mcg-250 mg capsule [...] MOUTH FOR 1 DOSE 11/25/19 25 025 Discontinued( erapy completed) M-Catalino Plus 27 mg iron- 1 mg tablet Take 1 tablet by mouth daily 11/23/19 25 025 Discontinued( erapy completed) Active Problems Problem Noted Date Diagnosed Date Chlamydia infection 11/25/2024 GBS bacteriuria 11/25/2024 Encounter for supervision of normal , a ntepartum 11/20/2024 Mild intermittent asthma without complication Assessment & Plan (09/02/2024 11:22 AM QUILL LAYER): Patient with history of asthma since childhood. [...] 09/02/2024 Assessment & Plan (09/02/2024 11:21 AM QUILL LAYER): Patient uses seatbelt. Patient was encouraged to exercise on regular basis. Patient had flu vaccine. Patient was encouraged to quit smoking marijuana Estimated Date of Delivery Comme nts Yes 06/02/2025 Based on last me nstrual period of 08/26/2024 Immunizations Immunization Administration Dates Next Due DTaP [...] 7-Valent 07/03/20 05,2004,2004,04/27 Tdap 04/12/2015 Varicella 06/02/2008,03/19/2005 Social History Tobacco Use Types Packs/Day Years [...] on file Legal Sex Female 3:50 PM QUILL LAYER Gender Identity Not on file Sexual Orientation Not on file Last Filed Vital Signs Vital Sign Reading Time Taken Comments Blood Pressure 124/80 01/18/2025 3:08 PM CDT Pulse 60 09/02/2024 9:24 AM QUILL LAYER Temperature 37 C (98.6 F) 09/02/2024 9:24 AM QUILL LAYER Respiratory Rate 16 09/02/2024 9:24 AM QUILL LAYER Oxygen Saturation 98% 09/02/2024 9:24 AM QUILL LAYER Inhaled Oxygen Concentration - - Weight 102.5 kg (226 lb) 01/18/2025 3:08 PM CDT Height 180.3 cm (5' 10.98 ) 01/18/2025 3:08 PM C DT Body Mass Index 31.53 01/18/2025 3:08 PM CDT Plan of Treatment Not on file Procedures Procedure Name Priority Date/Time Associated Diagnosis Comments US OB 14 WEEKS OR OVER W ENDOVAGINAL Schedule Routine, Read Routine (OP Routine) 01/18/2025 2:16 PM CDT Encounter for follow-up ultrasound of anatomy N. GONORRHOEAE/C. TRACHOMATIS AMPLIFICATION Routine 12/31/2024 3:06 PM CDT Routine screening for STI (sexually transmitted infection) DRUGS OF ABUSE SCREEN, URINE WITH REFLEX CONFIRMATION Routine 11/20/2024 10:28 AM QUILL LAYER Encounter for supervision of normal in first trimester, unspecified URINE CULTURE Routine 11/20/2024 10:28 AM QUILL LAYER Encounter for supervision of normal in first trimester, unspecified N. GONORRHOEAE/C. TRACHOMATIS AMPLIFICATION Routine 11/20/2024 10:28 AM QUILL LAYER Encounter for supervision of normal in first trimester, unspecified TRICHOMONAS VAGINALIS PCR Routine 11/20/2024 10:28 AM QUILL LAYER Encounter for supervision of normal in first trimester, unspecified ANTIBODY SCREEN Routine 11/20/2024 10:13 AM QUILL LAYER Encounter for supervision of normal in first trimester, unspecified ABO/RH Routine 11/20/2024 10:13 AM QUILL LAYER Encounter for supervision of normal in first trimester, unspecified CBC WITHOUT DIFFERENTIAL Routine 11/20/2024 10:13 AM QUILL LAYER Encounter for supervision of normal in first trimester, unspecified HEMOGLOBIN A1C Routine 11/20/2024 10:13 AM QUILL LAYER Encounter for supervision of normal in first trimester, unspecified HEMOGLOBIN ANALYSIS BY ELECTROPHORESIS Routine 11/20/2024 10:13 AM QUILL LAYER Encounter for supervision of normal in first trimester, unspecified TYPE AND SCREEN Routine 11/20/2024 10:13 AM QUILL LAYER Encounter for supervision of normal in first trimester, unspecified HEPATITIS B SURFACE ANTIGEN Routine 11/20/2024 10:13 AM QUILL LAYER Encounter for supervision of normal in first trimester, unspecified HEPATITIS C ANTIBODY Routine 11/20/2024 10:13 AM QUILL LAYER Encounter for supervision of normal in first trimester, unspecified HIV 1/2 ANTIBODY PLUS P24 ANTIGEN Routine 11/20/2024 10:13 AM QUILL LAYER Encounter for supervision of normal in first trimester, unspecified RPR Routine 11/20/2024 10:13 AM QUILL LAYER Encounter for supervision of normal in first trimester, unspecified RUBELLA IGG Routine 11/20/2024 10:13 AM QUILL LAYER Encounter for supervision of normal in first trimester, unspecified US OB UNDER 14 WEEKS Schedule Routine, Read Routine (OP Routine) 11/20/2024 9:26 AM QUILL LAYER Establish gestational age, ultrasound from Last 3 [...] 3:06 PM CDT) C. trachomatis Not Detected [facility] Comment:Testing performed by : [facility], [address] [place]., [address] N. gonorrhoeae Not Detected VANESSA JAMES Comment: Interpretive Data This assay detects Chlamydia trachomatis and Neisseria gonorrhoeae by nucleic acid amplification testing (NAAT). This assay has been cleared by the [facility] Food and Drug administration. The performance characteristics of this test have been verified by the [facility] Molecular Infectious Disease laboratory. The performance characteristics of this test have not been evaluated in individuals less than 14 years of age. Current Interpretive Data was last revised on 2023. Testing performed by: [facility], [address] [place]., [address] Vaginal (None) 12/31/2024 3: 06 PM CDT 12/31/2024 7:43 PM CDT Hope Hernandez MD LAB MICROBIOLOGY - GENERA L ORDERABLES Final Result [facility]ESSA JAMES [address] [facility] Department [place] [address] [facility] * (ABNORMAL) N. gonorrhoeae/C. trachomatis Amplification Urine (11/20/2024 10:28 AM QUILL LAYER) C. trachomatis Detected(A) [facility] Comment:Testing performed by : [facility], [address] [place]., [address] N. gonorrhoeae Not Detected VANESSA JAMES Comment: Interpretive Data This assay detects Chlamydia trachomatis and Neisseria gonorrhoeae by nucleic acid amplification testing (NAAT). This assay has been cleared by the [place] Food and Drug administration. The performance characteristics of this test have been verified by the [facility] Molecular Infectious Disease laboratory. The performance characteristics of this test have not been evaluated in individuals less than 14 years of age. Current Interpretive Data was last revised on 2023. Testing performed by: [facility], [address] [place]., [address] Urine (None) 11/20/2024 10:2 8 AM QUILL LAYER 11/21/2024 12:11 AM QUILL LAYER us Vincetn Rios MD LAB MICROBIOLOGY - [facility] ORDERABLES Final Result VANESSA [address] [facility] Department [place] [address] [facility] * Drugs of Abuse Screen, Urine with Reflex Confirmation (11/20/2024 10:28 AM QUILL LAYER) Pathologist [facility] Amphetamine, ur Not Detected CutOff 500ng/mL Comment: Interpretive Data - Amphetamines: Samples containing greater than 500 ng/mL d-methamphetamine or other cross-reacting amphetamine compounds are reported as positive. Amphetamine immunoassays are subject to significant false positive rates due to cross-reactivity of non-amphetamine drugs. Confirmatory testing required for definitive results. Current Interpretive Data was last reviewed 2023. Testing performed by: [address] [address] Barbiturates, ur Not Detected CutOff 200ng/mL VANESSA Comment: Interpretive Data - Barbiturates: Samples containing greater than 200 ng/mL secobarbital or other cross-reacting barbiturate compounds are reported as positive. False positive and false negative results are possible. Confirmatory testing required for definitive results. Current Interpretive Data was last reviewed 2023. Testing performed by: [address] [address] Benzodiazepines, ur Not Detected CutOff 100ng/mL VANESSA Comment: Interpretive Data - Benzodiazepines: Samples containing greater than 100 ng/mL nordiazepam or other cross-reacting compounds are reported as positive. False positive and false negative results are possible. Confirmatory testing required for definitive results. Current Interpretive Data was last reviewed 2023. Testing performed by: [address] [address] Cannabinoids, ur Not Detected CutOff 50 ng/mL VANESSA Comment: Interpretive Data - Cannabinoids: Samples containing greater than 50 ng/mL delta-9 THC -COOH or other cross- reacting compounds are reported as positive. False positive and false negative results are possible. Confirmatory testing required for definitive results. Current Interpretive Data was last reviewed 2023. Testing performed by: [address] [address] Cocaine, ur Not Detected CutOff 150ng/mL [facility] Comment: Interpretive Data - Cocaine: Samples containing greater than 150 ng/mL benzoylecgonine or other cross- reacting compounds are reported as positive. False positive and false negative results are possible. Confirmatory testing required for definitive results. Current Interpretive Data was last reviewed 2023. Testing performed by: [address] [address] Fentanyl, Ur Not Detected CutOff 5 ng/mL [facility] Comment: Interpretive Data - Fentanyl: Samples containing greater than 1 ng/mL fentanyl or other cross-reacting fentanyl compounds are reported as positive. False positive and false negative results are possible. Confirmatory testing required for definitive results. Current Interpretive Data was last reviewed 2023. Testing performed by: [address] [address] Methadone, ur Not Detected CutOff 300ng/mL [facility] Comment: Interpretive Data - Methadone: Samples containing greater than 300 ng/mL d,l-methadone or other cross-reacting compounds are reported as positive. False positive and false negative results are possible. Confirmatory testing required for definitive results. Current Interpretive Data was last reviewed 2023. Testing performed by: [address] [address] Opiates, ur Not Detected CutOff 300ng/mL [facility] Comment: Interpretive Data - Opiates: Samples containing greater than 300 ng/mL morphine or other cross-reacting compounds are reported as positive. False positive and false negative results are possible. Confirmatory testing required for definitive results. Current Interpretive Data was last reviewed 2023. Testing performed by: [address] [address] Oxycodone, ur Not Detected CutOff 100ng/mL [facility] Comment: Interpretive Data - Oxycodone: Samples containing greater than 100 ng/mL oxycodone or other cross-reacting compounds are reported as positive. False positive and false negative results are possible. Confirmatory testing required for definitive results. Current Interpretive Data was last reviewed 2023. Testing performed by: [address] [address] Phencyclidine, ur Not Detected CutOff 25 ng/mL VANESSA Comment: Interpretive Data - Phencyclidine: Samples containing greater than 25 ng/mL phencyclidine or other cross-reacting compounds are reported as positive. False positive and false negative results are possible. Confirmatory testing required for definitive results. Current Interpretive Data was last reviewed 2023. Testing performed by: [address] [address] Urine Creatinine 443 mg/dL [facility]ANESSA Comment: Interpretive Data Urine Creatinine: < 10 mg/dL is extremely dilute = or > 10 but < 20 mg/dL is dilute = or > 20 mg/dL is normal Current Interpretive Data was last revised on 2017. Testing performed by: [address] [address] Urine 11/20/2024 10:2 8 AM QUILL LAYER 11/20/2024 7:18 PM QUILL LAYER Narrative VANESSA - 11/20/2024 7:42 PM QUILL LAYER Drug of Abuse screening is performed by immunoassay for medical purposes only. This is not to be used for Pain Management purposes. If Detected, confirmation testing will be performed for Amphetamines, Cocaine, Fentanyl, Methadone, Opiates, Oxycodone or Phencyclidine. Vincent Rios MD LAB URINE ORDERABLES [facility] al Result [facility] [address] [facility] [place] [address] * Trichomonas vaginalis PCR Urine (11/20/2024 10:28 AM QUILL LAYER) Trichomonas DNA Not Detected [facility] Comment: Interpretive Data This assay detects Trichomonas vaginalis by nucleic acid amplification testing (NAAT). This assay has been cleared by the [place] Food and Drug administration. The performance characteristics of this test have been verified by the [facility] Molecular Infectious Disease laboratory. The performance of this test has not been evaluated in individuals less than 18 years of age. Current Interpretive Data was last revised on 2023. Testing performed by: [facility], [address] [place]., [address] Urine 11/20/2024 10:2 8 AM QUILL LAYER 11/21/2024 12:11 AM QUILL LAYER Vincent Rios MD LAB MICROBIOLOGY - [facility] ORDERABLES Final Result VANESSA [address] [facility] [place] [address] [facility] * (ABNORMAL) Urine culture Urine, clean voided (11/20/2024 10:28 AM QUILL LAYER) Report Final Report: Less than 100,000 colonies/mL [...] allergic patients, please contact the laboratory at [phone] to request susceptibility testing * * * [...] periurethral trice. (.) Comment:Testing performed by : [facility], [address] [place] [address] Organism (CLINICALLY INSIGNIFICANT GROWTH [facility] Organism STREPTOCOCCUS AGALACTIAE (GROUP B STREPTOCOCCI) VANESSA Urine, clean voided 11/20/2024 10:28 AM QUILL LAYER 11/20/2024 11:52 PM QUILL LAYER Narrative VANESSA - 11/22/2024 6:47 AM QUILL LAYER Testing performed by [facility] Microbiology Laboratory ([phone]) Vincent Rios MD LAB MICROBIOLOGY - GENER AL ORDERABLES Final Result Performing Organization Address City/[facility] Co de Phone Number [address] [address] * HIV 1/2 Antibody plus p24 Antigen Blood (11/20/2024 10:13 AM QUILL LAYER) [facility] HIV 1/2 ab + p24 ag Nonreactive Nonreactive Comment:Nonreactive for HIV- 1 antigen and HIV-1/HIV-2 antibodies. No laboratory evidence of HIV infection. If acute HIV infection is suspected, consider testing for HIV-1 RNA. Current interpretive data was last revised on 22. Blood 11/20/2024 10:1 3 AM QUILL LAYER 11/20/2024 12:38 PM QUILL LAYER Vincent Rios MD LAB MICROBIOLOGY - GENER AL ORDERABLES Final Result Performing Organization Address [facility] Co de Phone Number [address] [place] [address] * Hemoglobin analysis by electrophoresis (11/20/2024 10:13 AM QUILL LAYER) [facility] RBC 4.36 3.90 - 5.20 M/cumm Comment:Testing performed by : [facility], [address] [place]., [address] Hgb 13.4 11.9 - 15.5 g/dL VANESSA JAMES Comment:Testing performed by : [facility], [address] [place]., [address] MCV 91.3 81.3 - 96.4 fL [facility]ANESSA JAMES Comment:Testing performed by : [facility], [address] [place] [address] Rdw 13.5 11.1 - 14.9 % VANESSA JAMES Comment:Testing performed by : [facility], [address] [place]., [address] Hgb electrophores is, interp Normal Hemoglobin Pattern - For Age VANESSA JAMES Comment:Testing performed by : [facility], [address] [place]., [address] Hgb A 96.9 96.0 - 98.5 % VANESSA Comment:Testing performed by : [facility], [address] [place]., [address] Hgb A2 3.1 1.5 - 3.2 % VANESSA Comment:Testing performed by : [facility], [address] [place]., [address] Hgb F <0.4 0.0 - 0.9 % VANESSA Comment:Testing performed by : [facility], [address] [place]., [address] Blood 11/20/2024 10:1 3 AM QUILL LAYER 11/20/2024 1:20 PM QUILL LAYER Vincent Rios MD LAB BLOOD ORDERABLES Fin al Result VANESSA [address] [facility] [place] [address] * Hepatitis C antibody Blood (11/20/2024 10:13 AM QUILL LAYER) Hep C Ab Nonreactive Nonreactive Comment: Antibodies [...] on 2019. Blood 11/20/2024 10:1 3 AM QUILL LAYER 11/20/2024 12:38 PM QUILL LAYER Vincent Rios MD LAB MICROBIOLOGY - GENER AL ORDERABLES Final Result Performing Organization Address [facility] de Phone Number [address] [place] [place] [address] * ABO/Rh (11/20/2024 10:13 AM QUILL LAYER) ABO/Rh AB Positive Comment:Testing performed by : [facility], [address] [place] [address]., [address] Blood 11/20/2024 10:1 3 AM QUILL LAYER 11/20/2024 10:42 AM QUILL LAYER Narrative [facility] - 11/20/2024 11:35 AM QUILL LAYER Has the patient had Daratumumab or Isatuximab in the past 6 months?->Unknown Hx of or candidate for Bone Marrow/Stem Cell transplant?->No Vincent Rios MD LAB BLOOD BANK TEST ORDE RABLES Final Result Performing Organization Address [facility] de Phone Number [address] [place] [place] [address] * Rubella IgG antibody Blood (11/20/2024 10:13 AM QUILL LAYER) Rubella IgG Reactive Reactive Blood 11/20/2024 10:1 3 AM QUILL LAYER 11/20/2024 12:38 PM QUILL LAYER Vincent Rios MD LAB MICROBIOLOGY - GENER AL ORDERABLES Final Result Performing Organization Address [facility] Co de Phone Number [address] [place] [place] [address] * RPR Blood (11/20/2024 10:13 AM QUILL LAYER) RPR Nonreactive Nonreactive Comment:Testing performed by : [facility], [address] [facility] [place]., [address] Blood 11/20/2024 10:1 3 AM QUILL LAYER 11/20/2024 3:31 PM QUILL LAYER Vincent Rios MD LAB MICROBIOLOGY - GENER AL ORDERABLES Final Result Performing Organization Address City/[facility] Co de Phone Number VANESSA [address] [facility] [place] [place] [address] * Hepatitis B Surface Antigen Blood (11/20/2024 10:13 AM QUILL LAYER) Pathologist [facility] HepBsAg Nonreactive Nonreactive Blood 11/20/2024 10:1 3 AM QUILL LAYER 11/20/2024 12:38 PM QUILL LAYER Vincent Rios MD LAB MICROBIOLOGY - GENER AL ORDERABLES Final Result Performing Organization Address [facility] de Phone Number VANESSA [address] [place] [address] * (ABNORMAL) CBC without differential (11/20/2024 10:13 AM QUILL LAYER) [facility] WBC 12.8(H) 3.8 - 9.9 K/cumm Comment:Testing performed by : [address] [address] Hgb 13.8 11.9 - 15.5 g/dL VANESSA Comment:Testing performed by : [address] [address] Hct 40.0 35.6 - 45.5 % VANESSA Comment:Testing performed by : [address] [address] Plt 320 150 - 400 K/cumm VANESSA Comment:Testing performed by : [address] [address] MPV 10.3 9.1 - 12.3 fL VANESSA JAMES Comment:Testing performed by : [address] [address] RBC 4.46 3.90 - 5.20 M/cumm VANESSA JAMES Comment:Testing performed by : [address] [address] MCV 89.7 81.3 - 96.4 fL VANESSA Comment:Testing performed by : [address] [address] MCH 30.9 27.1 - 33.3 pg VANESSA JAMES Comment:Testing performed by : [address] [address] MCHC 34.5 32.3 - 35.7 g/dL VANESSA JAMES Comment:Testing performed by : [address], [address] RDW CV 13.5 11.1 - 14.9 % VANESSA JAMES Comment:Testing performed by : [address], [address] RDW SD 44.4 35.7 - 48.1 fL VANESSA JAMES Comment:Testing performed by : [address], [address] NRBC abs 0.00 0.00 - 0.01 K/cumm VANESSA JAMES Comment:Testing performed by : [address], [address] Blood 11/20/2024 10:1 3 AM QUILL LAYER 11/20/2024 10:42 AM QUILL LAYER Vincent Rios MD LAB BLOOD ORDERABLES Fin al Result VANESSA [address] [facility] Department of Laboratories [place], [place] [id number] * Antibody screen (11/20/2024 10:13 AM QUILL LAYER) Malena, indirect, Gel Interpretation Negative ABSC Comment:Testing performed by : [address] [address] Blood 11/20/2024 10:1 3 AM QUILL LAYER 11/20/2024 10:42 AM QUILL LAYER Narrative VANESSA - 11/20/2024 11:46 AM QUILL LAYER Has the patient had Daratumumab or Isatuximab in the past 6 months?->Unknown Hx of or candidate for Bone Marrow/Stem Cell transplant?->No Vincent Rios MD LAB BLOOD BANK TEST ORDE ALEKS Final Result Performing Organization Address [facility] Co de Phone Number VANESSA [address] [facility] [place] [address] * Hemoglobin A1c (11/20/2024 10:13 AM QUILL LAYER) Hgb A1C 5.1 4.0 - 5.6 % Comment:Testing performed by : [address] [address] Estimated Average Glucose 100 mg/dL SOKATHLEEN Comment: The ADA recommends reporting an estimated Average Glucose (eAG) with all Hemoglobin A1c results using the equation derived from a study of 507 normal and diabetic adults. Minority populations were underrepresented and children were not included. (Diabetes Care 31:7023-1757, 2008). The eAG is not equivalent to a fasting glucose. Testing performed by: [address] [address] Blood 11/20/2024 10:1 3 AM [facility]ER 11/20/2024 10:42 AM QUILL LAYER us Vincent Rios MD LAB BLOOD ORDERABLES Fin al Result Performing Organization Address [facility] Co de Phone Number [place] [phone] [facility] [place] [address] * US Ob Under 14 Weeks (11/20/2024 9:26 AM QUILL LAYER) Heart Rate 161 bpm CRL 6.79 cm Anatomical Region Laterality Modality Abdomen N/A Ultrasound Narrative 11/20/2024 1:27 PM QUILL LAYER Previous exam: no Indication: dating number: 1 GA by LMP 11.20.24 12w2d BRANDI 06.02.25 GA by today's exam 13w1d BRANDI ..25 CRL 6.79 cm FHR 161 bpm Airplane Pilot Chief comments: Ovaries WNL. PCI/ACI/4ch/CP/2 arms/2 legs visualized. [...] - Final from Last [address] [facility] [employer] Care Teams Independent Video Producer Relationship Specialty Start Date End Date Lulu Heck MD [address] [place] [address] PCP - General Internal Medicine 09/02/24
[2025-02-01 20:13] VITALS: BP 121/64; PULSE 74
[2025-02-01 20:14] VITALS: BMI 31.5
--- NOTE | 2025-02-01 20:14 | OBADM ---
This patient, Dominga Lantigua, admitted to the OB room OB Post 115 for observation. Patient/family oriented to hospital policies and general routines including ID bracelet, bed and alarms, visiting hours, pain management, procedures, bathroom and other care routines, personal items, smoking policy, room service/diet, and visiting hours. Patient/Family are encouraged to report perceived risks to care and to ask questions if they do not understand what they are told or what they should do.
[2025-02-01 20:16] VITALS: BP 116/64; PULSE 75
[2025-02-01 20:32] VITALS: BP 133/96; PULSE 91
[2025-02-01 20:46] VITALS: BP 132/70; PULSE 84
[2025-02-01 21:01] VITALS: BP 124/60; PULSE 64
--- NOTE | 2025-02-01 21:10 | PC.NURSE ---
This RN called Dr. Silverman about patient arrival to the labor and delivery unit for complaints of cramping that started today at 1400 or 1500 per patient. MD notified that she is not feeling cramping as often. MD notified that patient had not eaten since this morning and stated that she only had two bottles of water today. FHTs ranged from 135-170 bpm. No contractions noted on the toco. MD notified of patients readiness to leave. New orders received to discharge patient at this time.
[2025-02-01 21:16] VITALS: BP 123/62; PULSE 68
--- NOTE | 2025-02-02 08:00 | PM.OBTRLD ---
OB - Triage/Final Diagnosis Visit Information Comments/Additional reasons for admission: I have assessed the risk for this patient, Dominga Lantigua, and determined that she would benefit from observation care. Evaluation Vital signs: Vital Signs - 24 hr 02/01/25 20:13 02/01/25 20:14 02/01/25 20:16 Pulse Rate 74 75 Blood Pressure 121/64 116/64 Oxygen Delivery Room Air 02/01/25 20:32 02/01/25 20:46 02/01/25 21:01 Pulse Rate 91 84 64 Blood Pressure 133/96 H 132/70 124/60 Oxygen Delivery 02/01/25 21:16 Pulse Rate 68 Blood Pressure 123/62 Oxygen Delivery Final Diagnosis (1) Cramping affecting , antepartum: Code(s): O26.899 - Other specified related conditions, unspecified trimester; R10.9 - Unspecified abdominal pain Status: Acute
== END 2025-02-01 21:31 | disposition home or self-care (01) ==
PROVIDERS: Admitting Provider Obstetrics & Gynecology; Visit Provider Obstetrics & Gynecology
DX: O26.892 Other specified pregnancy related conditions, second trimester (principal); R10.9 Unspecified abdominal pain; Z3A.22 22 weeks gestation of pregnancy
CPT/HCPCS: G0378; G0379